=== PATIENT | female | born 2000 | race Caucasian/White ===

== ENCOUNTER 2024-04-02 13:04 | Emergency (ER) | payer OTHER, SELFPAY ==
--- NOTE | ~2024-04-02 | CT_ITS ---
EXAMINATION: CT abdomen pelvis wo con DATE: 04/02/2024 13:58 INDICATION: Left flank pain that radiates to the back TECHNIQUE: Computed tomography (CT) of the abdomen and pelvis was performed without intravenous contr ast. Automated exposure control and iterative reconstruction technique were employed. The dose-length product was 933.00 mGy-cm. COMPARISON: None FINDINGS: Discoid atelectasis at the left lung base. Heart size is normal. No pericardial or pleural effusion. Liver, gallbladder, spleen, pancreas, bilateral adrenal glands and kidneys are normal. No urolithiasi s or hydronephrosis. Bowels including the appendix are normal. Bladder is normal. Anteverted uterus a nd bilateral adnexa are unremarkable. Trace amount of likely physiologic free fluid in the deep pelvi s. No abscess or free intraperitoneal gas. No pathologically enlarged abdominal or pelvic lymphadenop athy. Bones are unremarkable. IMPRESSION: 1. No urolithiasis or acute intra-abdominal/pelvic process. Reviewed, dictated and finalized at location [facility]
[2024-04-02 13:05] VITALS: BP 157/82; PULSE 89; RESP 18; TEMP 36.6; O2SAT 99
--- NOTE | 2024-04-02 13:15 | ED_ITS ---
HPI - General Adult General Chief complaint: Urogenital-Female Stated complaint: back pain Time Seen by Provider: 04/02/24 13:09 History of Present Illness HPI narrative: Edison is a 23F with a PMH of developmental delay that was brought into the ED with left flank pain for a few days. She does not endorse any other symptoms but communication is difficult d/t her developmental delay. Related Data Home Medications ?Medication ?Instructions ?Recorded ?Confirmed ?Last Taken ?Type risperidone 1 mg tablet (Risperdal) 1 mg PO DAILY 04/02/24 04/02/24 Unknown History Allergies Allergy/AdvReac Type Severity Reaction Status Date / Time No Known Allergies Allergy Verified 04/02/24 13:11 Review of Systems 2 Review of Systems: All systems reviewed & are unremarkable except as noted in HPI and below Exam 2 Const: General: cooperative, healthy appearing, comfortable, no acute distress, well developed, alert, awake and Physically active O rientation/consciousness: oriented to person, oriented to place and oriented to time HENMT: Head: normal to inspection, normocephalic and atraumatic Ears: h earing grossly normal bilaterally and external ears normal Face/Nose/Sinus: N ormal external nose present Eyes: General: appearance normal, both eyes and all related structures P eriorbital: periorbital findings normal Sclera: sclerae normal Pupils: E qual, round and reactive pupils present Neck: Neck: normal visual inspection Chest: Chest palpation & inspection: normal inspection of the chest Resp: Effort & Inspection: normal respiratory effort, able to speak in complete sentences and no respiratory distress Auscultation: clear to auscultation bilaterally Cardio: Jugular venous distension: no JVD Rate: regular rate Rhythm: r egular rhythm GI: Inspection: normal to inspection GI Palp: Yes Soft to palpation A uscultation: normal bowel sounds : Other: left flank tenderness Skin: General skin exam: normal color and no rashes or lesions noted Neuro: General: oriented to person, oriented to place and oriented to time Cranial nerves: Yes Equal, round and reactive pupils present Extrem: General: normal to inspection Course Course Emergency Course: Ordered labs, UA, and CT as well as toradol for pain EXAMINATION: CT abdomen pelvis wo con DATE: 04/02/2024 13:58 INDICATION: Left flank pain that radiates to the back TECHNIQUE: Computed tomography (CT) of the abdomen and pelvis was performed without intravenous contrast. Automated exposure control and iterative reconstruction technique were employed. The dose-length product was 933.00 mGy- cm. COMPARISON: None FINDINGS: Discoid atelectasis at the left lung base. Heart size is normal. No pericardial or pleural effusion. Liver, gallbladder, spleen, pancreas, bilateral adrenal glands and kidneys are normal. No urolithiasis or hydronephrosis. Bowels including the appendix are normal. Bladder is normal. Anteverted uterus and bilateral adnexa are unremarkable. Trace amount of likely physiologic free fluid in the deep pelvis. No abscess or free intraperitoneal gas. No pathologically enlarged abdominal or pelvic lymphadenopathy. Bones are unremarkable. IMPRESSION: 1. No urolithiasis or acute intra-abdominal/pelvic process. UA largely unremarkable. Given the normal CT and UA pain is likely from a muscular strain Vital Signs Vital signs: Vital Signs Temperature 97.9 F 04/02/24 13:05 Pulse Rate 89 04/02/24 13:05 Respiratory Rate 18 04/02/24 13:05 Blood Pressure 157/82 H 04/02/24 13:05 Pulse Oximetry 99 04/02/24 13:05 Oxygen Delivery Room Air 04/02/24 13:05 Temperature 97.9 F 04/02/24 13:05 Pulse Rate 89 04/02/24 13:05 Respiratory Rate 18 04/02/24 13:05 Blood Pressure 157/82 H 04/02/24 13:05 Pulse Oximetry 99 04/02/24 13:05 Oxygen Delivery Room Air 04/02/24 13:05 Medical Decision Making Vital Signs Vital Signs: Vital Signs Temperature 97.9 F 04/02/24 13:05 Pulse Rate 89 04/02/24 13:05 Respiratory Rate 18 04/02/24 13:05 Blood Pressure 157/82 H 04/02/24 13:05 Pulse Oximetry 99 04/02/24 13:05 Oxygen Delivery Room Air 04/02/24 13:05 Temperature 97.9 F 04/02/24 13:05 Pulse Rate 89 04/02/24 13:05 Respiratory Rate 18 04/02/24 13:05 Blood Pressure 157/82 H 04/02/24 13:05 Pulse Oximetry 99 04/02/24 13:05 Oxygen Delivery Room Air 04/02/24 13:05 Lab Data 04/02/24 13:34 04/02/24 13:34 Labs: Lab Results 04/02/24 04/02/24 04/02/24 Range/Units 13:24 13:34 13:43 WBC 8.3 (4.8-10.8) K/mm3 RBC 4.60 (4.20-5.40) M/mm3 Hgb 13.3 (12.0-15.0) g/dL Hct 40.6 (35.0-49.0) % MCV 88.3 (78.0-102.0) fL MCH 28.9 (27.0-31.0) pg MCHC 32.8 (32-36) g/dL RDW 13.7 (11.6-14.4) % Plt Count 285 (150-420) K/mm3 MPV 9.8 (9.2-11.8) fl Immature Gran % (Auto) 0.5 H (0.0-0.0) % Neut % (Auto) 68.5 (50.0-70.0) % Lymph % (Auto) 24.8 (18.0-42.0) % [place] % (Auto) 4.6 (2.0-11.0) % Eos % (Auto) 1.4 (1.0-6.0) % Baso % (Auto) 0.2 (0.0-1.0) % Lymph # (Auto) 2.06 (1.10-4.50) K/mm3 [place] # (Auto) 0.38 (0.10-0.90) K/mm3 Eos # (Auto) 0.12 (0.02-0.50) K/mm3 Baso # (Auto) 0.02 (0.00-0.10) K/mm3 Abs Immat Gran (auto) 0.04 H (0.00-0.00) K/mm3 Absolute Neuts (auto) 5.67 (1.70-7.20) K/mm3 Absolute Nucleated RBC 0.00 (0.00-0.00) K/mm3 Nucleated RBC % 0.0 (0-0.0) % Sodium 139 (136-145) mmol/L Potassium 3.8 (3.5-5.1) mmol/L Chloride 103 (98-108) mmol/L Carbon Dioxide 26 (21-32) mmol/L Anion Gap 10 (4-12) mmol/L BUN 8 (7-18) mg/dL Creatinine 0.73 (0.55-1.02) mg/dL Estim Creat Clear Calc 130 ml/min Estimated GFR > 60 (59 - ) Glucose 128 H (70-99) mg/dL Calculated Osmolality 288 (285-295) mOsm/kg Calcium 8.9 (8.5-10.1) mg/dL Total Bilirubin 0.3 (0.00-1.00) mg/dL AST 19 (15-37) U/L ALT 45 (14-59) U/L Alkaline Phosphatase 95 (46-116) U/L Total Protein 7.2 (6.4-8.2) g/dL Albumin 3.3 L (3.4-5.0) g/dL Urine Color Light yellow (Yellow) Urine Appearance Clear (Clear) Urine pH 5.5 (5.0-8.0) Ur Specific [place] 1.025 H (1.010-1.020) Urine Protein Negative (Negative) Urine Glucose (UA) Negative (Negative) Urine Ketones Negative (Negative) Ur Blood (Man) Negative (Negative) Urine Nitrate Negative (Negative) Urine Bilirubin Negative (Negative) Urine Urobilinogen 0.2 (0.2-1.0) mg/dL Leukocyte Esterase Rfl Negative (Negative) ELIJAH/UL Urine Test Negative Discharge Plan Discharge Clinical Impression: Acute left flank pain Patient Disposition: Home, Self-Care Condition: Stable Instructions: Flank Pain (ED) Patient Language: Hebrew Prescriptions: No Action risperidone [Risperdal] 1 mg tablet 1 mg PO DAILY Follow-up/Referrals: Yeimi Joy APRN [Primary Care Provider] -
[2024-04-02 13:30] LABS: Add Urine Microscopic? NO; Appearance Urine Clear (Clear); Bilirubin Urine Negative (Negative); Blood Urine Negative (Negative); Color Urine Light Yellow (Yellow); Glucose Urine UA Negative (Negative); Ketones Urine Negative (Negative); Leukocyte Esterase Ur Negative LEU/UL (Negative); Nitrate Urine Negative (Negative); Protein Urine Negative (Negative); Specific Grav Ur 1.025 (1.010-1.020); Urobilinogen Urine 0.2 mg/dL (0.2-1.0); pH Urine 5.5 (5.0-8.0)
[2024-04-02] MEDS: KETOROLAC 30 MG/ML VIAL (*BKC) IM (13:33)
[2024-04-02 13:38] LABS: Basophils Absolute Auto 0.02 K/mm3 (0.00-0.10); Basophils Percent Auto 0.2 % (0.0-1.0); Eosinophils Absolute Auto 0.12 K/mm3 (0.02-0.50); Eosinophils Percent Auto 1.4 % (1.0-6.0); Hematocrit 40.6 % (35.0-49.0); Hemoglobin 13.3 g/dL (12.0-15.0); Immature Granulocyte Absolute 0.04 K/mm3 (0.00-0.00); Immature Granulocyte Percent A 0.5 % (0.0-0.0); Lymphocytes Absolute Auto 2.06 K/mm3 (1.10-4.50); Lymphocytes Percent Auto 24.8 % (18.0-42.0); Mean Corpuscular HGB Conc 32.8 g/dL (32-36); Mean Corpuscular Hemoglobin 28.9 pg (27.0-31.0); Mean Corpuscular Volume 88.3 fL (78.0-102.0); Mean Platelet Volume 9.8 fl (9.2-11.8); Monocytes Absolute Auto 0.38 K/mm3 (0.10-0.90); Monocytes Percent Auto 4.6 % (2.0-11.0); Neutrophils Absolute Auto 5.67 K/mm3 (1.70-7.20); Neutrophils Percent Auto 68.5 % (50.0-70.0); Platelet Count Result 285 K/mm3 (150-420); Red Cell Distribution Width 13.7 % (11.6-14.4); White Blood Count 8.3 K/mm3 (4.8-10.8)
[2024-04-02 13:47] LABS: Pregnancy On Board Control Positive; Urine Pregnancy Test Negative
[2024-04-02 13:55] LABS: Alanine Aminotransferase 45 U/L (14-59); Albumin Level 3.3 g/dL (3.4-5.0); Alkaline Phosphatase 95 U/L (46-116); Anion Gap 10 mmol/L (4-12); Aspartate Amino Transferase 19 U/L (15-37); Bilirubin,Total 0.3 mg/dL (0.00-1.00); Blood Urea Nitrogen 8 mg/dL (7-18); Calcium 8.9 mg/dL (8.5-10.1); Carbon Dioxide 26 mmol/L (21-32); Chloride 103 mmol/L (98-108); Estimated CRCL calculation 130 ml/min; Estimated Glomerular Filt Rate > 60; Glucose 128 mg/dL (70-99); Osmolality Calculated 288 mOsm/kg (285-295); Potassium 3.8 mmol/L (3.5-5.1); Sodium 139 mmol/L (136-145); Total Protein 7.2 g/dL (6.4-8.2)
[2024-04-02 14:25] VITALS: TEMP 36.5
[2024-04-02 14:26] VITALS: BP 121/76; PULSE 79; RESP 20; TEMP 37.1; O2SAT 97
== END 2024-04-02 14:25 | disposition home or self-care (01) ==
PROVIDERS: Emergency Provider Family Medicine; PCP Nurse Practitioner Family
DX: R10.32 Left lower quadrant pain (principal)
CPT/HCPCS: 36415; 74176; 80053; 81003; 81025; 85025; 96372; 99283; J1885